=== PATIENT | female | born 1980 | race Hispanic/Latino ===

== ENCOUNTER 2023-11-19 19:32 | Emergency (ER) | payer BC ==
[~2023-11-19] VITALS: Ht 157.5 cm; Wt 70.3 kg
[2023-11-19] MEDS ORDERED: MORPHINE 4 MG SYG ONE (19:57)
[2023-11-19] MEDS ORDERED: ONDANSETRON 4MG INJ ONE (19:57)
[2023-11-19] MEDS ORDERED: MORPHINE 4 MG SYG IVP ONE (20:00)
[2023-11-19] MEDS ORDERED: ONDANSETRON 4MG INJ IVP ONE (20:00)
[2023-11-19 20:21] LABS: HEMATOCRIT 36.7 % (36-48); MEAN CORPUSCULAR HEMOGLOBIN 29.4 pg (27.0-33.0); MEAN CORPUSCULAR HGB CONC 32.7 g/dL (32.0-36.0); PLATELET COUNT (AUTO) 328 K/uL (130-400); RED BLOOD CELL COUNT(AUTO) 4.08 MIL/uL (4.00-5.50); RED CELL DISTRIBUTION WIDTH 13.8 % (11.0-15.5); WHITE BLOOD COUNT (AUTO) 7.7 K/uL (4.8-10.8)
[2023-11-19 20:30] LABS: CREATININE 0.8 mg/dL (0.5-1.5); POTASSIUM 4.5 mmol/L (3.5-5.1)
[2023-11-19 20:33] LABS: BASOPHILS # (AUTO) 0.05 K/uL (0.00-0.20); BASOPHILS % (AUTO) 0.6 % (0.0-5.0); EOSINOPHILS # (AUTO) 0.16 K/uL (0.00-0.70); IMMATURE GRANULOCYTE ABSOLUTE 0.02 K/uL (0-1); LYMPHOCYTES # (AUTO) 3.4 K/uL (1.0-4.8); MONOCYTES # (AUTO) 0.6 K/uL (0.1-1.0); NEUTROPHILS # (AUTO) 3.7 K/uL (1.8-7.7); NEUTROPHILS % (AUTO) 47.1 % (40.0-77.0)
[2023-11-19 20:35] LABS: ALBUMIN 3.3 g/dL (3.5-5.0); BILIRUBIN,TOTAL 0.7 mg/dL (0.2-1.0); TOTAL PROTEIN, SERUM 7.4 g/dL (6.0-8.3)
[2023-11-19] MEDS ORDERED: HYDROMORPHONE 0.5 MG SYG (0.5MG/0.5ML) IVP ONE (21:30)
[2023-11-19] MEDS ORDERED: PROPOFOL 10 MG/ML 20ML VIAL IV ONE (21:47)
[2023-11-19 23:10] VITALS: BP 135/68; PULSE 80; RESP 18; O2SAT 98
== END 2023-11-19 23:11 | disposition home or self-care (01) ==
LOC: EDH 19:32
DX: S43.001A Unspecified subluxation of right shoulder joint, initial encounter (principal); W18.39XA Other fall on same level, initial encounter; Y93.51 Activity, roller skating (inline) and skateboarding; Y92.89 Other specified places as the place of occurrence of the external cause; Y99.8 Other external cause status
CPT/HCPCS: 25605; 99284; 80053; 84703; 85025; 36415; 73070; 73080; 73060; 73110; 96374; 96375; J2704; J2405; J2270 ×2; J1170; J3490